=== PATIENT | female | born 1930 | race Caucasian/White ===

== ENCOUNTER 2018-02-18 13:17 | Inpatient (IN) | payer OTHER ==
[~2018-02-18] VITALS: Ht 152.4 cm; Wt 55.0 kg
[~2018-02-18 13:17] MED LIST: ALPRAZOLAM0.25 M2 PO; AMLODIPINE BES2.5 MG PO; BENZONATATE100 MG; CIPRO500 MG PO; CYANOCOBAL1000 MCG/2 IM; CYANOCOBALAMIN 1,000 IM; EVISTA60 MG PO; Ecotrin PO; HAIR VITAMIN PO; HAIR VITAMIN1 EACH PO; HAIR, SKIN & N1 EAC1 PO; LO-DOSE ASPIRIN81 M1 PO; LOSARTAN-HCTZ1 EAC1 PO; RALOXIFENE HCL60 MG PO; TYLENOL WITH C1 EACH PO; VITAMIN D PO; VITAMIN D2000 UNI1 PO; VITAMIN PO; ZOFRAN4 MG PO; [UNRECOGNIZED DRUG - OTHER] PO
[2018-02-18 14:40] LABS: HEMATOCRIT 38.6 % (36.0-46.0); MCH 28.4 PG (29.0-34.0); MCHC 33.7 G/DL (30.0-36.0); MCV 84.3 FL (83-99); PLATELET COUNT 290 K/uL (156-360); RBC DIS.WIDTH-CV 13.7 % (11.8-14.6); RBC DIS.WIDTH-SD 42.4 % (39-53); RED BLOOD COUNT 4.58 M/uL (3.80-5.20); WHITE BLOOD COUNT 6.7 K/uL (4.1-10.2)
[2018-02-18 15:04] LABS: CHLORIDE 97 MEQ/L (99-109); CREATININE 0.6 MG/DL (0.6-1.3); GFR ESTIMATE (CALCULATED) > 59 mL/min/; GLUCOSE 92 mg/dL (70-99); POTASSIUM 4.5 MEQ/L (3.7-5.4); SODIUM 133 MEQ/L (136-147); UREA NITROGEN (BUN) 12 mg/dL (9-23)
[2018-02-18 20:32] LABS: TROP-I INTERPRETATION NEGATIVE; TROPONIN-I < 0.01 ng/mL (0.0-0.30)
[2018-02-18 20:55] LABS: CREATINE KINASE 61 IU/L (1-294); TOTAL CK 61 IU/L (1-294)
[2018-02-18 21:25] LABS: CK-MB 1.7 ng/mL (0.0-4.9); CKMB RELATIVE INDEX 2.8 (0.0-3.9)
[2018-02-18 22:45] VITALS: BP 137/63
[2018-02-19 04:35] VITALS: BP 141/62
[2018-02-19 07:05] VITALS: BP 134/62
[2018-02-19 08:12] LABS: BASOPHIL (%) 0.3 % (0-1); EOSINOPHIL (%) 0.8 % (0-5); EOSINOPHIL COUNT 0.1 K/uL (0-0.3); HEMOGLOBIN 11.3 G/DL (11.9-15.5); IMMATURE GRANULOCYTE (%) 0.3 % (0.0-0.7); LYMPHOCYTE (%) 18.5 % (15-42); LYMPHOCYTE COUNT 1.3 K/uL (1.0-2.8); MCH 28.7 PG (29.0-34.0); MCHC 34.2 G/DL (30.0-36.0); MCV 83.8 FL (83-99); MONOCYTE (%) 14.3 % (3-12); NEUTROPHIL (%) 65.8 % (45-76); NEUTROPHIL COUNT 4.7 K/uL (1.8-6.4); PLATELET COUNT 234 K/uL (156-360); RBC DIS.WIDTH-CV 13.5 % (11.8-14.6); RBC DIS.WIDTH-SD 41.7 % (39-53); RED BLOOD COUNT 3.94 M/uL (3.80-5.20); WHITE BLOOD COUNT 7.1 K/uL (4.1-10.2)
[2018-02-19 08:33] LABS: CHLORIDE 99 MEQ/L (99-109); CREATININE 0.5 MG/DL (0.6-1.3); GFR ESTIMATE (CALCULATED) > 59 mL/min/; GLUCOSE 95 mg/dL (70-99); HDL CHOLESTEROL 33 MG/DL (Desirable>=50); LDL CHOLESTEROL 84 mg/dL (Desirable<100); NON-HDL CHOLESTEROL 115 mg/dL (Desirable<160); POTASSIUM 3.7 MEQ/L (3.7-5.4); SODIUM 131 MEQ/L (136-147); TOTAL CHOLESTEROL 148 mg/dL (Desirable<200); TOTAL CK 181 IU/L (1-294); TRIGLYCERIDES 155 MG/DL (Normal: <150); UREA NITROGEN (BUN) 8 mg/dL (9-23)
[2018-02-19 08:45] LABS: CREATINE KINASE 181 IU/L (1-294)
[2018-02-19 08:47] LABS: TROP-I INTERPRETATION POSITIVE
[2018-02-19 08:50] LABS: TROPONIN-I 3.17 ng/mL (0.0-0.30)
[2018-02-19 09:05] LABS: CK-MB 17.2 ng/mL (0.0-4.9); CKMB RELATIVE INDEX 9.5 (0.0-3.9)
[2018-02-19 11:57] LABS: HEMOGLOBIN A1c (GLYCOHEMOGLOB) 5.1 % (Below 5.7)
[2018-02-19 12:27] VITALS: BP 135/64
[2018-02-19 15:33] VITALS: BP 133/63
[2018-02-19 19:42] VITALS: BP 150/68
[2018-02-19 23:28] VITALS: BP 150/66
[2018-02-20 05:12] VITALS: BP 152/67
[2018-02-20 06:56] LABS: CHLORIDE 98 MEQ/L (99-109); CREATININE 0.6 MG/DL (0.6-1.3); GFR ESTIMATE (CALCULATED) > 59 mL/min/; GLUCOSE 90 mg/dL (70-99); POTASSIUM 3.6 MEQ/L (3.7-5.4); SODIUM 132 MEQ/L (136-147); UREA NITROGEN (BUN) 11 mg/dL (9-23)
[2018-02-20 07:30] VITALS: BP 161/70
[2018-02-20 07:51] VITALS: BP 161/70
[2018-02-20 11:54] VITALS: BP 125/82
[2018-02-20] MEDS ORDERED: ATORVASTATIN CA40 MG PO (12:05)
[2018-02-20] MEDS ORDERED: NITROSTAT0.4 MG SL (12:05)
[2018-02-20] MEDS ORDERED: CLOPIDOGREL75 MG PO (12:05)
[2018-02-20 12:16] VITALS: BP 158/67
== END 2018-02-20 13:23 | disposition home or self-care (01) | DRG 247 ==
LOC: CATH 13:17 → ENRESERV 16:46 → 2SOUTH 18:35 → 4EAST 18:35
PROVIDERS: Internal Medicine Cardiovascular Disease; Internal Medicine Interventional Cardiology
DX: I25.110 Atherosclerotic heart disease of native coronary artery with unstable angina pectoris (principal); L76.32 Postprocedural hematoma of skin and subcutaneous tissue following other procedure; Y84.0 Cardiac catheterization as the cause of abnormal reaction of the patient, or of later complication, without mention of misadventure at the time of the procedure; I45.2 Bifascicular block; I11.9 Hypertensive heart disease without heart failure; Z79.82 Long term (current) use of aspirin
CPT/HCPCS: 80048; 80061; 82550; 82553; 83036; 84484; 85025; 85027; 85347; 93005; 93926; C1725; C1769; C1874; C1887; C1894; J0461; J1644; J2250; J2270; J2405; J3010